=== PATIENT | male | born 1945 | race Caucasian/White ===

== ENCOUNTER → 2017-05-17 | Outpatient (CLI) | payer MEDICARE ==
--- NOTE | 2017-05-20 10:00 | SLEEP ---
DATE OF STUDY: 05/17/2017 ATTENDING PHYSICIAN: Dr. Liang Almodovar The patient is a 72-year-old who weighs 230 pounds with a BMI of 33. The patient's [place] score was 0. Home sleep study was performed by [facility]. The total recording time was 438 minutes. During the night study, the patient had no central or mixed apneas. There were 2 obstructive apneas and 6 hypopneas. The patient's apnea hypopnea index was only 1 per hour with a supine index of 0 per hour. The patient's review of nocturnal oximetry study revealed an average oxygen saturation of 91% with the lowest of 82%. Fourteen minutes were spent in oxygen saturation of less than 90% which was 3% of total sleep time. Mean heart rate was 56 beats per minute. IMPRESSION: 1. No clinically significant sleep disordered breathing. 2. Mild nocturnal hypoxia. RECOMMENDATIONS: 1. The patient did not meet the split night criteria for CPAP initiation. 2. Weight loss is advised. 3. Avoid [employer] depressants. MATILDE PATTERSON MD DR: CAROLE/adolfo JOB#: [id number] / [id number] NICA
== END | disposition home or self-care (01) ==
LOC: RT 08:50
PROVIDERS: ATTEND Family Medicine
DX: G47.33 Obstructive sleep apnea (adult) (pediatric) (principal)
CPT/HCPCS: G0399